=== PATIENT | male | born 1980 | race African-American/Black ===

== ENCOUNTER 2019-03-29 14:54 | Emergency (ER) | payer OTHER ==
[2019-03-29 14:58] VITALS: BMI 25.9
[2019-03-29] MEDS ORDERED: HYDROCODON-ACET15 ML PO (14:59)
[2019-03-29] MEDS ORDERED: GLUCOPHAGE500 MG PO (14:59)
[2019-03-29] MEDS ORDERED: ROBAXIN500 MG PO (15:00)
[2019-03-29] MEDS ORDERED: NEURONTIN600 MG PO (15:00)
[2019-03-29] MEDS ORDERED: VOLTAREN75 MG PO (17:22)
[2019-03-29] MEDS ORDERED: TALWIN NX1 TAB PO (17:22)
[2019-03-29 18:12] VITALS: BP 124/85
== END 2019-03-29 18:13 | disposition home or self-care (01) ==
LOC: D.ER 14:54
DX: M54.5 Low back pain (principal)